=== PATIENT | male | born 1975 | race Two or more races ===

== ENCOUNTER 2022-10-02 16:49 | Inpatient (IN) | payer MEDICAID ==
[~2022-10-02] VITALS: Ht 167.6 cm; Wt 79.5 kg
[2022-10-02] MEDS ORDERED: ASPIRIN 81MG TABLET PO ONE (20:15)
[2022-10-02] MEDS ORDERED: NITROGLYCERIN OINT 1GM/INCH UDPKT TD ONE (20:15)
[2022-10-02] MEDS ORDERED: FUROSEMIDE 40MG/4ML VIAL IV ONE (20:15)
[2022-10-02 21:41] LABS: BASOPHILS % 0.9 % (0.0-2.0); EOSINOPHILS % 0.2 % (0.0-5.0); HEMATOCRIT. 38.6 % (42.0-52.0); HEMOGLOBIN. 12.4 g/dL (14.0-18.0); LYMPHOCYTES % 35.7 % (20.0-50.0); MEAN CORPUSCULAR VOLUME 78.1 fL (80.0-94.0); MEAN PLATELET VOLUME 8.4 fl (7.4-10.4); MONOCYTES % 7.4 % (2.0-8.0); NEUTROPHILS % 55.8 % (40.0-76.0); PLATELET 261 x1000/uL (130-400); RED BLOOD CELL COUNT 4.94 mill/uL (4.7-6.1); RED CELL DISTRIBUTION WIDTH 18.1 % (11.6-14.6)
[2022-10-02 21:46] LABS: CHLORIDE 103 mEq/L (98-107)
[2022-10-02 21:50] LABS: INR 1.2; PARTIAL THROMBOPLASTIN TIME 30.2 sec (23.4-31.0); PROTHROMBIN TIME 13.1 sec (9.6-11.0)
[2022-10-02] MEDS ORDERED: MORPHINE SULFATE 4 MG/ML CPJ (NOT FOR IM USE) IV STA (22:47)
[2022-10-02] MEDS ORDERED: ONDANSETRON HCL 4MG/2ML INJ IV STA (22:47)
[2022-10-02] MEDS ORDERED: CLONIDINE 0.2MG TABLET PO ONE (23:00)
[2022-10-03] VITALS (12 sets, daily range): BP systolic 111–152; BP diastolic 45–111
[2022-10-03] MEDS ORDERED: DOCUSATE SODIUM 100MG CAPSULE PO PRN (04:30)
[2022-10-03] MEDS ORDERED: GUAIFENESIN 200MG/10ML SUGAR FREE UDC PO PRN (04:30)
[2022-10-03] MEDS ORDERED: MAGNESIUM/ALUMINUM HYDROXIDE/SIMETHICONE 30ML UDC PO PRN (04:30)
[2022-10-03] MEDS ORDERED: ACETAMINOPHEN 325MG TABLET PO PRN ×2 (04:30)
[2022-10-03] MEDS ORDERED: ONDANSETRON HCL 4MG/2ML INJ IV PRN (04:30)
[2022-10-03] MEDS: FUROSEMIDE 40MG/4ML VIAL IVP SCH (08:50)
[2022-10-03] MEDS: ASPIRIN 81MG TABLET PO SCH (08:50)
[2022-10-03] MEDS: CLONIDINE 0.1MG TABLET PO PRN (08:50)
[2022-10-03] MEDS: FAMOTIDINE 20MG TABLET PO SCH ×2 (08:50→21:34)
[2022-10-03] MEDS: ENOXAPARIN 40MG/0.4ML SYR SUBCUT SCH (09:00)
[2022-10-03 12:44] LABS: CLARITY URINE CLEAR (CLEAR); COLOR URINE YELLOW (YELLOW); KETONES URINE NEGATIVE (NEGATIVE); LEUKOCYTE ESTERASE URINE NEGATIVE (NEGATIVE); NITRITE URINE NEGATIVE (NEGATIVE); OCCULT BLOOD URINE NEGATIVE (NEGATIVE); PH URINE 6.5 (4.5-8.0); PROTEIN URINE TRACE (NEGATIVE); SPECIFIC GRAVITY URINE 1.009 (1.005-1.030)
[2022-10-03 13:32] LABS: CHLORIDE 103 mEq/L (98-107)
[2022-10-03 13:40] LABS: TOTAL IRON BINDING CAPACITY 488 ug/dL (250-450)
[2022-10-03 14:06] LABS: *AMPHETAMINES SCREEN URINE PRESUMTIVE POSITIVE (NEGATIVE); *BARBITURATES SCREEN URINE NEGATIVE (NEGATIVE); *BENZODIAZEPINES SCREEN URINE NEGATIVE (NEGATIVE); *COCAINE SCREEN URINE NEGATIVE (NEGATIVE); CANNABINOID URINE SCREEN PRESUMTIVE POSITIVE (NEGATIVE); METHADONE URINE SCREEN NEGATIVE (NEGATIVE); OPIATES URINE SCREEN PRESUMTIVE POSITIVE (NEGATIVE); PHENCYCLIDINE URINE SCREEN NEGATIVE (NEGATIVE)
[2022-10-03 14:12] LABS: VITAMIN B12 SERUM 692 pg/mL (211-911)
[2022-10-03] MEDS: HYDRALAZINE HCL 25MG TABLET PO SCH ×2 (14:13→21:39)
[2022-10-03] MEDS: AMLODIPINE 10MG TABLET PO SCH (14:14)
[2022-10-03 14:25] LABS: FOLIC ACID (FOLATE) SERUM > 20.00 ng/mL (>5.38)
[2022-10-03 17:26] LABS: BASOPHILS % 1.2 % (0.0-2.0); EOSINOPHILS % 1.2 % (0.0-5.0); HEMATOCRIT. 39.1 % (42.0-52.0); HEMOGLOBIN. 12.2 g/dL (14.0-18.0); LYMPHOCYTES % 32.9 % (20.0-50.0); MEAN CORPUSCULAR HEMOGLOBIN 24.5 pg (28.0-32.0); MEAN CORPUSCULAR VOLUME 78.7 fL (80.0-94.0); MEAN PLATELET VOLUME 8.3 fl (7.4-10.4); MONOCYTES % 6.9 % (2.0-8.0); NEUTROPHILS % 57.8 % (40.0-76.0); PLATELET 265 x1000/uL (130-400); RED BLOOD CELL COUNT 4.97 mill/uL (4.7-6.1); RED CELL DISTRIBUTION WIDTH 17.7 % (11.6-14.6)
[2022-10-03] MEDS: IPRATROPIUM/ALBUTEROL 0.5-3(2.5)MG/3ML NEB HHN PRN (23:32)
[2022-10-04] VITALS: BP 147/125
[2022-10-04] MEDS: CLONIDINE 0.1MG TABLET PO PRN ×2 (00:21→10:38)
[2022-10-04] MEDS: HYDRALAZINE HCL 25MG TABLET PO SCH ×2 (05:33→14:00)
[2022-10-04 06:46] LABS: BASOPHILS % 0.7 % (0.0-2.0); EOSINOPHILS % 1.3 % (0.0-5.0); HEMATOCRIT. 38.1 % (42.0-52.0); LYMPHOCYTES % 29.9 % (20.0-50.0); MEAN CORPUSCULAR VOLUME 79.6 fL (80.0-94.0); MEAN PLATELET VOLUME 8.2 fl (7.4-10.4); MONOCYTES % 7.1 % (2.0-8.0); PLATELET 234 x1000/uL (130-400); RED BLOOD CELL COUNT 4.79 mill/uL (4.7-6.1)
[2022-10-04 07:22] LABS: CHLORIDE 102 mEq/L (98-107)
[2022-10-04 07:37] LABS: HDL CHOLESTEROL 25 mg/dL (40-59); LDL CHOLESTEROL 99 mg/dL (5-100); T4 FREE 1.04 ng/dL (0.76-1.46)
[2022-10-04 08:00] VITALS: BP 151/117
[2022-10-04] MEDS: ASPIRIN 81MG TABLET PO SCH (08:09)
[2022-10-04] MEDS: ENOXAPARIN 40MG/0.4ML SYR SUBCUT SCH (08:09)
[2022-10-04] MEDS: FUROSEMIDE 40MG/4ML VIAL IVP SCH (08:09)
[2022-10-04] MEDS: FAMOTIDINE 20MG TABLET PO SCH (08:09)
[2022-10-04] MEDS: IPRATROPIUM/ALBUTEROL 0.5-3(2.5)MG/3ML NEB HHN PRN (09:34)
[2022-10-04] MEDS: AMLODIPINE 10MG TABLET PO SCH (09:52)
[2022-10-04 10:00] VITALS: BP 150/112
[2022-10-04 12:00] VITALS: BP 146/95
== END 2022-10-04 14:27 | disposition left against medical advice (07) | DRG 194 ==
LOC: ER 16:49 → ENRESERV 10-03 00:42 → 5EST 10-03 02:50
PROVIDERS: ADMIT Internal Medicine; ATTEND Internal Medicine
DX: I11.0 Hypertensive heart disease with heart failure (principal); J96.01 Acute respiratory failure with hypoxia; I21.4 Non-ST elevation (NSTEMI) myocardial infarction; N17.9 Acute kidney failure, unspecified; D64.9 Anemia, unspecified; E80.6 Other disorders of bilirubin metabolism; C44.91 Basal cell carcinoma of skin, unspecified; I50.23 Acute on chronic systolic (congestive) heart failure; F17.210 Nicotine dependence, cigarettes, uncomplicated; I50.9 Heart failure, unspecified; R73.9 Hyperglycemia, unspecified; I25.10 Atherosclerotic heart disease of native coronary artery without angina pectoris; F10.10 Alcohol abuse, uncomplicated; I25.2 Old myocardial infarction; Z59.00 Homelessness unspecified; Z85.71 Personal history of Hodgkin lymphoma; Z91.14 Patient's other noncompliance with medication regimen; Z79.82 Long term (current) use of aspirin; Z41.1 Encounter for cosmetic surgery
CPT/HCPCS: 36415; 71045; 80053; 80061; 80305; 81003; 82607; 82746; 83036; 83540; 83550; 83880; 84439; 84443; 84484; 85025; 93005; 93306; 93970; 97162; 97166; 99291; J1650; J1940; J2270; J2405